=== PATIENT | female | born 1960 | race American Indian/Alaskan Native ===

== ENCOUNTER 2018-03-20 09:04 | Day surgery (SDC) | payer MEDICARE ==
[~2018-03-20 09:04] MED LIST: ANCEF/STERILE WATER 2 GM/20 ML 2 GM/20 ML SYRINGE IV NR; NACL 0.9% 1000 ML 1,000 ML IV SCH
[2018-03-20 09:49] LABS: Basophils # (Auto) 0.1 K/mm3 (0.0-0.1); Basophils % (Auto) 1.3 % (0.0-1.8); Eosinophils # (Auto) 0.1 K/mm3 (0.0-0.4); Eosinophils % (Auto) 2.6 % (0.0-4.3); Hematocrit 35.9 % (30.3-42.9); Lymphocytes # (Auto) 1.8 K/mm3 (1.2-5.4); Lymphocytes % (Auto) 38.6 % (13.4-35.0); Mean Corpuscular HGB Conc 34 % (30-34); Mean Corpuscular Volume 91 fl (79-97); Monocytes # (Auto) 0.5 K/mm3 (0.0-0.8); Monocytes % (Auto) 9.9 % (0.0-7.3); Platelet Count 211 K/mm3 (140-440); Red Blood Count 3.94 M/mm3 (3.65-5.03); Red Cell Distribution Width 14.1 % (13.2-15.2)
[2018-03-20] MEDS ORDERED: HEPARIN/NS 5000 UNIT/500ML(CATH LAB) 500 ML IR ONE ×2 (09:57→11:03)
[2018-03-20 10:02] LABS: BUN/Creatinine Ratio 17; Blood Urea Nitrogen 10 mg/dL (7-17); Calcium 8.8 mg/dL (8.4-10.2); Hemolysis Index 71; INR 1.11 (0.87-1.13); Partial Thromboplastin Time 24.7 Sec. (24.2-36.6)
[2018-03-20] MEDS: VERSED ONE ×5 (10:54→12:33)
[2018-03-20] MEDS: SUBLIMAZE ONE ×6 (10:54→12:33)
[2018-03-20] MEDS ORDERED: ANCEF/STERILE WATER 2 GM/20 ML 2 GM/20 ML SYRINGE IV ONE (10:56)
[2018-03-20] MEDS: XYLOCAINE 2% INFILTRATI ONE ×2 (10:57→11:17)
[2018-03-20] MEDS: HEPARIN 10,000 UNITS/10 ML ONE ×2 (11:29→11:53)
--- NOTE | 2018-03-20 13:21 | Operative Report ---
Operative Report Operative Report: Operative note: Date: 03/20/2018 Preoperative diagnosis:. Occluded left iliac stents. IVC filter. Postoperative diagnosis: Same. Operation: Ultrasound-guided right internal jugular vein access. Ultrasound- guided left common femoral vein accessed. Cavogram. Vrnogram of left femoral iliac vessels. Left external iliac stenting with 14 x 60 Protege. Surgeon: Sade Carey. Asst.: none Anesthesia: moderate sedation and local EBL: Minimal Findings: Patent IVC filter was no clot in the inferior vena cava. Thrombosed left common and external iliac stent. Thrombus extending into left iliofemoral area distally. Indications: Patient underwent previously bilateral iliac venogram and stent placement, followed mechanical thrombolysis of left lower extremity extensive DVT. She had some improvement of her edema with subsequent on and off swelling. She underwent venous ultrasound in our office that noted occluded left iliac stents. She was brought into the 4 left iliac venogram and possible IVC filter removal. She was discussed risks, benefits and alternatives of procedure and chose to proceed and signed informed consent. Operative details: Patient was brought to the [facility] and placed in supine position. Bilateral femoral area and right internal jugular area were prepped and draped in sterile fashion. Timeout was performed. Right internal jugular vein was accessed after local anesthetic injection was micropuncture needle and changed to micropuncture sheath in the usual fashion. Field wire was advanced into distal inferior vena cava and attempted to advance into left iliac stents to perform venogram and plan for intervention. Micropuncture sheath was exchanged to 5 British access sheath and vertebral catheter was advanced over the wire. I attempted to get through stents using Field wire followed by a glide advantage, but unsuccessful. At this point I decided to access the left femoral vein and go from ipsilateral site in attempt to get through stents. Left femoral vein was accessed in the usual fashion using micropuncture needle and changed to micropuncture sheath performing a sheath shot it was identified to have meniscus just beyond proximal femoral vein. It was changed to 5 British access sheath. And using a vertebral catheter and glide advantage, J-wire, Glidewire eventually I was able to advance both into and through stents into IVC. I then upsized the sheath to a 7 British and exchanged the glide advantage to V18 wire, then I used Treratola over the wire and used it throughout the occluded stent. Next, I checked with venogram through the sheath and confirmed small amount of space created in the clot and being inside the stent. Using 14 x 40 [place] balloon I performed serial angioplasties inside the stent and distal to that. It appeared to be residual narrowing just distal to the stent into the proximal common femoral vein. Patient was heparinized with 5000 units of heparin. I deployed a 14 x 16 stent covering narrowed area with some overlap into the existing stents. It was post dilated using same balloon. There was good results with some narrowing mostly in the proximal stents. At this point I decided to use a 12 x 40 Lutonix DCB and performed angioplasty of the proximal portion of the stent. Sheath was upsized from 7 British 9 British. Insufflation was performed for 3 minutes. There were excellent results on postintervention venogram.. There was no residual clot and no residual stenosis. IVC filter was without clot and IVC was patent. All devices were pulled and manual pressure until hemostasis was performed at the left femoral and right IJ accesses. Patient tolerated procedure well and was transferred to PACU in stable condition. She will continue anticoagulation with Eliquis. If her stents remain open at the time of follow-up, then we'll schedule for IVC filter removal.
--- NOTE | 2018-03-20 13:25 | Short Stay Summary ---
Short Stay Documentation Date of service: 03/20/18 - History H&P: obtained from office - Allergies and Medications Current Medications: Allergies No Known Allergies Allergy (Verified 03/20/18 09:18) Home Medications Medication Instructions Recorded Confirmed Last Taken Type Aspirin EC [Aspirin Enteric Coated 81 mg PO DAILY 12/29/17 03/20/18 03/19/18 History TAB] 81mg Levothyroxine [Synthroid] 100 mcg PO QAM 12/29/17 03/20/18 03/19/18 History 100mcg Lisinopril [Zestril] 10 mg PO DAILY 12/29/17 03/20/18 03/19/18 History 10mg Apixaban [Eliquis] 1 tab PO Q12HR 03/20/18 03/20/18 03/19/18 History 1 Active Medications Cefazolin Sodium (Ancef/Sterile Water 2 Gm/20 Ml) 2 gm in 20 mls @ 80 mls/hr IV PREOP NR; Protocol Stop: 03/20/18 23:59 Sodium Chloride (Nacl 0.9% 1000 Ml) 1,000 mls @ 42 mls/hr IV DIRECT SOLOMON Last Admin: 03/20/18 09:51 Dose: 42 mls/hr Documented by: - Brief post op/procedure progress note Date of procedure: 03/20/18 Pre-op diagnosis: occluded left iliac stents, IVC filter Post-op diagnosis: same Procedure: Ultrasound-guided right internal jugular vein access. Ultrasound-guided left common femoral vein accessed. Cavogram. Vrnogram of left femoral iliac vessels. Left external iliac stenting with 14 x 60 Protege. Anesthesia: MAC Findings: Patent IVC filter was no clot in the inferior vena cava. Thrombosed left common and external iliac stent. Thrombus extending into left iliofemoral area distally. Surgeon: RENETTA BOLTON Estimated blood loss: minimal Condition: stable - Disposition Condition at discharge: Good Disposition: DC-01 TO HOME OR SELFCARE Short Stay Discharge Plan Diet: regular Wound: remove dressing (in 2 days) Follow up with: PRIMARY CAREMD [Primary Care Provider] - 7 Days RENETTA BOLTON DO [Staff Physician] - 14 Days Prescriptions: HYDROcodone/APAP 5-325 [Voca 5/325] 1 each PO Q6HR PRN #20 tablet PRN Reason: Pain
[2018-03-20] MEDS ORDERED: NORCO 5/325 PO ONE (15:32)
[2018-03-20 15:49] VITALS: BP 160/76
== END 2018-03-20 09:05 | disposition home or self-care (01) ==
LOC: CATHLABREC 09:04
PROVIDERS: ATTEND Surgery Vascular Surgery
DX: T82.856A Stenosis of peripheral vascular stent, initial encounter (principal); I87.1 Compression of vein; E78.5 Hyperlipidemia, unspecified; E05.90 Thyrotoxicosis, unspecified without thyrotoxic crisis or storm; E03.9 Hypothyroidism, unspecified; I10 Essential (primary) hypertension; M19.90 Unspecified osteoarthritis, unspecified site; F32.9 Major depressive disorder, single episode, unspecified; M32.9 Systemic lupus erythematosus, unspecified; Z79.82 Long term (current) use of aspirin; Z79.01 Long term (current) use of anticoagulants; Z79.899 Other long term (current) drug therapy; Z98.51 Tubal ligation status; Z86.718 Personal history of other venous thrombosis and embolism; Z86.73 Personal history of transient ischemic attack (TIA), and cerebral infarction without residual deficits; Z98.890 Other specified postprocedural states; Z80.9 Family history of malignant neoplasm, unspecified
CPT/HCPCS: 36415; 37187; 37238; 75820; 75825; 80048; 85025; 85610; 85730; 99156; 99157; C1725; C1751; C1769; C1876; C1894; C2623; J0690; J1644; J2250; J3010; J7030; 37248; 75822; Q9967

== ENCOUNTER 2018-10-01 13:03 | Outpatient (CLI) | payer MEDICARE ==
--- NOTE | 2018-10-02 15:42 | Mammography Report ---
BILATERAL DIGITAL SCREENING MAMMOGRAM WITH CAD INDICATION: Routine screening mammography. TECHNIQUE: Digital bilateral 2D mammography was obtained in the craniocaudal and mediolateral obliq ue projections. This examination was interpreted with the benefit of Computer-Aided Detection analysi s. COMPARISON: 12/21/2015 FINDINGS: Breast Density: The breasts are heterogeneously dense, which may obscure small masses. No mass, architectural distortion or suspicious calcifications. IMPRESSION:No mammographic evidence of malignancy. BI-RADS Category 1: Negative. No mammographic evidence of malignancy. Recommend routine screening m ammography in one year. A "normal" or negative report should not discourage follow up or biopsy of a clinically significant f inding. A written summary of these findings will be mailed to the patient. The patient will be entered into a mammography reporting system which will generate a reminder letter for the patient's next appointmen t at the appropriate interval. The [employer] recommends yearly mammograms starting at age 40 and continuing as l andrea as a woman is in good health. Breast MRI is recommended for women with an approximate 20-25% or greater lifetime risk of breast cancer, including women with a strong family history of breast or ova emelia cancer or who have been treated for Hodgkin's disease. Signer Name: Riley Spears MD Signed: 10/02/2018 3:37 PM Workstation Name: [id number]
== END 2018-10-01 13:04 | disposition home or self-care (01) ==
LOC: MAMMO 13:03
DX: Z12.31 Encounter for screening mammogram for malignant neoplasm of breast (principal); I10 Essential (primary) hypertension; E03.9 Hypothyroidism, unspecified
CPT/HCPCS: 77067

== ENCOUNTER 2020-11-10 11:04 | Outpatient (CLI) | payer MEDICARE ==
--- NOTE | 2020-11-10 12:29 | Mammography Report ---
DIGITAL SCREENING MAMMOGRAM WITH CAD, 11/10/2020 CLINICAL INFORMATION / INDICATION: Routine screening mammography. SCREENING MAMMOGRAM TECHNIQUE: Digital bilateral 2D mammography was obtained in the craniocaudal and mediolateral obliqu e projections. This examination was interpreted with the benefit of Computer-Aided Detection analysis . COMPARISON: 10/01/2018, 12/21/2015 FINDINGS: Breast Density: The breasts are heterogeneously dense, which may obscure small masses. No dominant mass, suspicious calcifications, or architectural distortion in either breast. IMPRESSION: No mammographic evidence of malignancy. Follow up recommendation: Routine yearly BI-RADS Category 1: Negative. A "normal" or negative report should not discourage follow up or biopsy of a clinically significant f inding. A written summary of these findings will be mailed to the patient. The patient will be entered into a mammography reporting system which will generate a reminder letter for the patient's next appointmen t at the appropriate interval. The [employer] recommends yearly mammograms starting at age 40 and continuing as l andrea as a woman is in good health. Breast MRI is recommended for women with an approximate 20-25% or greater lifetime risk of breast cancer, including women with a strong family history of breast or ova emelia cancer or who have been treated for Hodgkin's disease. Signer Name: Rudy Fuentes MD Signed: 11/10/2020 12:25 PM Workstation Name: [id number]
== END 2020-11-10 11:05 | disposition home or self-care (01) ==
LOC: MAMMO 11:04
PROVIDERS: ATTEND Family Medicine
DX: Z12.31 Encounter for screening mammogram for malignant neoplasm of breast (principal)
CPT/HCPCS: 77067